=== PATIENT | female | born 1945 | race Caucasian/White ===

== ENCOUNTER → 2019-09-08 | Outpatient (CLI) | payer MEDICARE ==
[~2019-09-08] MED LIST: ASPI-650 PO; BUDE10.2 INH; HYDR-3653 PO; LEVO75TA5 PO; LISI-466 PO; LOVA20TA2 PO; METF500T17 PO; METO50TA82 PO; OMEP-110 PO; PRED5TAB PO; TOPI100T8 PO
== END | disposition home or self-care (01) ==
LOC: PETCFH 12:45
PROVIDERS: ATTEND Specialist
DX: C50.812 Malignant neoplasm of overlapping sites of left female breast (principal)
CPT/HCPCS: 78815; A9552

== ENCOUNTER → 2020-04-30 | Outpatient (CLI) | payer MEDICARE ==
[~2020-04-30] MED LIST changes: +ANAS1TAB49 PO; +CALC-680 PO; +CHOL10003 PO; +DEXA4VIA39 IM; +DIGO125T85 PO; +FLUT100B INH; +IRON PO; +KETO30VI27 IM; +LEVO50TA5 PO; +OMEG1CAP24 PO; +SERT50TA28 PO; +VIT1CAPS42 PO; +WARF-36 PO; +WARF2.5T32 PO
[2020-04-30 15:44] LABS: INTERNATIONAL NORMALIZED RATIO 2.89 (0.93-1.1); PROTHROMBIN TIME 30.3 Seconds (9.6-11.5)
[2020-04-30 15:47] LABS: ALANINE AMINOTRANSFERASE 28 U/L (12-78); ANION GAP 5 mmol/L (5-15); CALCIUM 8.9 mg/dL (8.5-10.1); CHLORIDE 107 mmol/L (98-107)
[2020-04-30 15:49] LABS: ALKALINE PHOSPHATASE 102 U/L (45-117); TOTAL PROTEIN 6.7 g/dL (6.4-8.2)
[2020-04-30 15:56] LABS: BASOPHILS % (AUTO) 1 % (0-1); EOSINOPHILS % (AUTO) 3 % (1-7); LYMPHOCYTES % (AUTO) 20 % (22-44); MEAN PLATELET VOLUME 9.6 fL (7.4-10.4); MONOCYTES % (AUTO) 8 % (2-9); NEUTROPHILS % (AUTO) 69 % (42-75); PLATELET COUNT 109 x10^3/uL (130-400); RED BLOOD COUNT 4.24 x10^6/uL (3.82-5.3); RED CELL DISTRIBUTION WIDTH 15.2 % (9.6-15.2)
[2020-04-30 16:07] LABS: MD NO
== END | disposition home or self-care (01) ==
LOC: STAR 14:26
PROVIDERS: ATTEND Surgery
DX: Z01.818 Encounter for other preprocedural examination (principal)
CPT/HCPCS: 36415; 80053; 85025; 85610; 93005

== ENCOUNTER 2020-05-10 06:53 | Day surgery (SDC) | payer MEDICARE ==
[~2020-05-10] VITALS: Ht 167.6 cm; Wt 102.0 kg
[2020-05-10 07:39] VITALS: BP 165/70
[2020-05-10] MEDS ORDERED: CHLORHEXIDINE 15 ML UDC ONE (07:45)
[2020-05-10] MEDS ORDERED: LACTATED RINGERS 1,000 ML IV SCH (08:00)
[2020-05-10] MEDS ORDERED: CHLORHEXIDINE 15 ML UDC MM ONE (08:00)
[2020-05-10 08:28] LABS: INTERNATIONAL NORMALIZED RATIO 1.44 (0.93-1.1); PROTHROMBIN TIME 15.2 Seconds (9.6-11.5)
[2020-05-10] MEDS ORDERED: FENTANYL PF 100 MCG/2ML ONE ×3 (08:43→12:04)
[2020-05-10] MEDS ORDERED: BUPIVACAINE/PF 0.25% ONE ×2 (09:14→09:49)
[2020-05-10] MEDS ORDERED: EPINEPHRINE 1 MG/ML, 1ML ONE (09:15)
[2020-05-10] MEDS ORDERED: MIDAZOLAM 1 MG/ML, 2ML ONE (09:28)
[2020-05-10] MEDS ORDERED: KETOROLAC 30 MG/1 ML ONE (09:30)
[2020-05-10] MEDS ORDERED: DEXAMETHASONE 4 MG/ML, 1ML ONE (09:59)
[2020-05-10] MEDS ORDERED: CEFAZOLIN 1,000 MG ONE (09:59)
[2020-05-10] MEDS ORDERED: PROPOFOL 10 MG/ML, 20ML ONE (09:59)
[2020-05-10] MEDS ORDERED: ONDANSETRON 2MG/ML, 2ML ONE (09:59)
[2020-05-10] MEDS ORDERED: LABETALOL 5MG/ML, 20ML IV PRN (10:00)
[2020-05-10] MEDS ORDERED: ACETAMINOPHEN 325 MG TABLET PO PRN ×2 (10:00)
[2020-05-10] MEDS ORDERED: hydrALAzine 20 MG/ML, 1ML IV PRN (10:00)
[2020-05-10] MEDS ORDERED: PROMETHAZINE 25 MG/ML, 1ML IVPush PRN (10:00)
[2020-05-10] MEDS ORDERED: OXYcodone 5 MG/5 ML ORAL.SOL UDC PO PRN (10:00)
[2020-05-10] MEDS ORDERED: LIDOCAINE-MPF 2% ,5ML ONE ×3 (10:02→10:07)
[2020-05-10] MEDS ORDERED: OXYcodone 5 MG/5 ML ORAL.SOL UDC ONE (11:01)
[2020-05-10] MEDS ORDERED: ACETAMINOPHEN 650 MG/20.3 ML UDC ONE (11:01)
[2020-05-10] MEDS ORDERED: ONDA4TAB7 PO (11:35)
[2020-05-10] MEDS ORDERED: HYDR-3240 PO (11:35)
== END 2020-05-10 12:00 | disposition home or self-care (01) ==
LOC: OUT 06:53
PROVIDERS: ATTEND Surgery
DX: C50.412 Malignant neoplasm of upper-outer quadrant of left female breast (principal); I48.91 Unspecified atrial fibrillation; E11.40 Type 2 diabetes mellitus with diabetic neuropathy, unspecified; J44.9 Chronic obstructive pulmonary disease, unspecified; E78.5 Hyperlipidemia, unspecified; E03.9 Hypothyroidism, unspecified; E66.9 Obesity, unspecified; M81.0 Age-related osteoporosis without current pathological fracture; G47.33 Obstructive sleep apnea (adult) (pediatric); Z79.899 Other long term (current) drug therapy; Z20.828 Contact with and (suspected) exposure to other viral communicable diseases; Z98.890 Other specified postprocedural states; Z72.89 Other problems related to lifestyle; Z87.891 Personal history of nicotine dependence; Z68.36 Body mass index [BMI] 36.0-36.9, adult
CPT/HCPCS: 19301; 36415; 82962; 85610; 87635; 88307; C1729; J0171; J0690; J1100; J1885; J2250; J2405; J2704; J3010; J7120